=== PATIENT | female | born 1980 | race Caucasian/White ===

== ENCOUNTER 2024-08-18 08:40 | Outpatient (CLI) | payer OTHER, SELFPAY | END 2024-08-18 08:41 | disposition home or self-care (01) | PROVIDERS: PCP Nurse Practitioner Family; Visit Provider Nurse Practitioner Family | DX: Z00.01 Encounter for general adult medical examination with abnormal findings (principal); N92.0 Excessive and frequent menstruation with regular cycle; Z13.6 Encounter for screening for cardiovascular disorders; Z13.1 Encounter for screening for diabetes mellitus | CPT/HCPCS: 80061; 82947; 84443; 85025 ==

== ENCOUNTER 2024-08-25 07:22 | Outpatient (CLI) | payer OTHER, SELFPAY ==
--- NOTE | 2024-08-25 07:15 | CRLHL7_ITS ---
For Patients: As a result of the Century Cures Act, medical imaging exams and procedure reports are released immediately into your electronic medical record. You may view this report before your referring provider. If you have questions, please contact your health care provider. INDICATION: excessive and frequent menstruation COMPARISON: None. TECHNIQUE: 2D jerome-scale and color Doppler images were acquired of the pelvis using a transabdominal and transvaginal approach. Transvaginal imaging performed to better visualize the endometrial stripe and ovaries. FINDINGS: Sonographic images demonstrate a normal size and smooth outer contour of the uterus. Uterus measures 9.5 cm in length by 5.3 cm in AP diameter by 6.2 cm in transverse dimension. The myometrium has a normal uniform echotexture. The endometrial lining measures 6.2 mm in composite thickness. The right ovary measures 4.7 x 2.7 x 2.8 cm in size and the left ovary measures 3.6 x 2.0 x 3.1 cm. The ovaries demonstrate normal arterial and venous blood flow on color Doppler analysis. There are no suspicious fluid collections within the cul-de-sac. IMPRESSION: Endometrial thickness 6.2 millimeters. No endometrial fluid. No uterine fibroid. Dictated by Ronak Olvera MD @ 08/25/2024 9:07:03 AM (Electronically Signed)
== END 2024-08-25 07:23 | disposition home or self-care (01) ==
LOC: US 07:22
PROVIDERS: PCP Nurse Practitioner Family; Visit Provider Nurse Practitioner Family
DX: N92.0 Excessive and frequent menstruation with regular cycle (principal); R93.89 Abnormal findings on diagnostic imaging of other specified body structures
CPT/HCPCS: 76830; 76856

== ENCOUNTER 2024-11-08 15:05 | Outpatient (CLI) | payer OTHER, SELFPAY ==
--- NOTE | 2024-11-08 15:00 | CRLHL7_ITS ---
For Patients: As a result of the Century Cures Act, medical imaging exams and procedure reports are released immediately into your electronic medical record. You may view this report before your referring provider. If you have questions, please contact your health care provider. INDICATION: Displaced IUD COMPARISON: 08/25/2024 TECHNIQUE: 2D jerome-scale and color Doppler images were acquired of the pelvis using a transabdominal and transvaginal approach. Transvaginal imaging performed to better visualize the endometrial stripe and ovaries. FINDINGS: Sonographic images demonstrate a normal size and smooth outer contour of the uterus. Uterus measures 10.4 cm in length by 5.0 cm in AP diameter by 7.6 cm in transverse dimension. The myometrium has a normal uniform echotexture. IUD is present in good position within the endometrial canal. Endometrial thickness is normal. The right ovary measures 3.4 x 1.4 x 1.9 cm in size and the left ovary measures 7.6 x 4.1 x 5.3 cm. The ovaries demonstrate normal arterial and venous blood flow on color Doppler analysis. There are no suspicious fluid collections within the cul-de-sac. Simple circumscribed left ovarian cyst measures 6.4 x 3.5 x 4.9 cm. IMPRESSION: Normal position of an IUD within the endometrial canal. Simple left ovarian cyst measures 6.4 cm. Dictated by Ronak Olvera MD @ 11/09/2024 6:58:00 AM (Electronically Signed)
== END 2024-11-08 15:06 | disposition home or self-care (01) ==
LOC: US 15:05
PROVIDERS: PCP Nurse Practitioner Family; Visit Provider Obstetrics & Gynecology
DX: T83.32XA Displacement of intrauterine contraceptive device, initial encounter (principal)
CPT/HCPCS: 76830; 76856

== ENCOUNTER 2024-11-10 07:09 | Outpatient (CLI) | payer OTHER, SELFPAY ==
--- NOTE | 2024-11-10 08:35 | P.ANES_ITS ---
Anesthesia Charges Start Date/Time Anesthesia Start Date: 11/10/24 Anesthesia Start Time: 07:54 Stop Date/Time Anesthesia Stop Date: 11/10/24 Anesthesia Stop Time: 08:35 Coding CPT Codes CPT Codes: ANES LWR INTST SCR COLSC - 28300 ([id number]) P2 - PATIENT W/MILD SYST DISEASE, QK - AIR VALVE REPAIRER 2-4 CNCRNT ANES PROC, QX - TESTING CONSULTANT SVC W/ MD MED DIRECTION
--- NOTE | 2024-11-10 08:35 | W.ANESCHARGE ---
Anesthesia Charges Start Date/Time Anesthesia Start Date: 11/10/24 Anesthesia Start Time: 07:54 Stop Date/Time Anesthesia Stop Date: 11/10/24 Anesthesia Stop Time: 08:35 Coding CPT Codes CPT Codes: ANES LWR INTST SCR COLSC - 98314 ([id number]) P2 - PATIENT W/MILD SYST DISEASE, QK - OIL AND GAS DRAFTER 2-4 CNCRNT ANES PROC, QX - OFFSET LITHOGRAPHIC PRESS OPERATOR SVC W/ MD MED DIRECTION
--- NOTE | 2024-11-10 11:15 | P.ANES_ITS ---
Anesthesia Charges Start Date/Time Anesthesia Start Date: 11/10/24 Anesthesia Start Time: 07:54 Stop Date/Time Anesthesia Stop Date: 11/10/24 Anesthesia Stop Time: 08:35 Coding CPT Codes CPT Codes: ANES LWR INTST SCR COLSC - [id number] ([id number]) P2 - PATIENT W/MILD SYST DISEASE, QK - VALUE STREAM LEADER 2-4 CNCRNT ANES PROC, QX - SILK WINDING MACHINE OPERATOR SVC W/ MD MED DIRECTION
--- NOTE | 2024-11-10 11:15 | W.ANESCHARGE ---
Anesthesia Charges Start Date/Time Anesthesia Start Date: 11/10/24 Anesthesia Start Time: 07:54 Stop Date/Time Anesthesia Stop Date: 11/10/24 Anesthesia Stop Time: 08:35 Coding CPT Codes CPT Codes: ANES LWR INTST SCR COLSC - 88526 ([id number]) P2 - PATIENT W/MILD SYST DISEASE, QK - BANKRUPTCY ASSISTANT 2-4 CNCRNT ANES PROC, QX - ARMHOLE PRESSER SVC W/ MD MED DIRECTION
== END 2024-11-10 07:10 | disposition home or self-care (01) ==
LOC: OP CLINIC 07:09
PROVIDERS: PCP Nurse Practitioner Family; Visit Provider Surgery
DX: Z12.11 Encounter for screening for malignant neoplasm of colon (principal); Z86.0100 Personal history of colon polyps, unspecified; K64.8 Other hemorrhoids
CPT/HCPCS: 00812; 45378; J2704

== ENCOUNTER 2024-12-20 13:44 | Outpatient (CLI) | payer OTHER, SELFPAY ==
--- NOTE | 2024-12-20 13:45 | CRLHL7_ITS ---
For Patients: As a result of the Century Cures Act, medical imaging exams and procedure reports are released immediately into your electronic medical record. You may view this report before your referring provider. If you have questions, please contact your health care provider. CLINICAL HISTORY: Follow up on left ovarian cyst COMPARISON: 11/08/2024 TECHNIQUE: 2D jerome-scale and color Doppler images were acquired of the pelvis using a transvaginal approach. FINDINGS: On transvaginal imaging, the myometrium has a normal uniform echotexture. The uterus measures 10.1 x 4.9 x 6.7 cm. IUD is present in good position within the endometrial canal. Endometrium is not thickened. The left ovary measures 3.9 x 2.2 x 2.3 cm in size and the right ovary measures 3.4 x 2.2 x 2.2 cm. The ovaries demonstrate normal arterial and venous blood flow on color Doppler analysis. Mild pelvic free fluid is present. IMPRESSION: Resolution of the previously noted left ovarian cyst. Dictated by Ronak Olvera MD @ 12/20/2024 3:58:37 PM (Electronically Signed)
== END 2024-12-20 13:45 | disposition home or self-care (01) ==
LOC: US 13:44
PROVIDERS: PCP Nurse Practitioner Family; Visit Provider Obstetrics & Gynecology
DX: N83.202 Unspecified ovarian cyst, left side (principal)
CPT/HCPCS: 76830